=== PATIENT | female | born 1950 | race Caucasian/White ===

== ENCOUNTER 2020-01-23 15:10 | Emergency (ER) | payer MEDICARE, BC, OTHER ==
[~2020-01-23] VITALS: Ht 165.1 cm; Wt 95.2 kg
[2020-01-23] MEDS ORDERED: HYDR1TAB94 PO (18:17)
[2020-01-23] MEDS ORDERED: KEFLEX500 MG PO (18:17)
[2020-01-23] MEDS ORDERED: MOMETASONE FURO17 GM (18:48)
[2020-01-23] MEDS ORDERED: SYNTHROID137 MCG PO (18:48)
== END 2020-01-23 18:45 | disposition home or self-care (01) ==
LOC: ER 15:10
DX: S81.812A Laceration without foreign body, left lower leg, initial encounter (principal); Z88.8 Allergy status to other drugs, medicaments and biological substances; W28.XXXA Contact with powered lawn mower, initial encounter
CPT/HCPCS: 12017; 73590; 90471; 90714; 99282-25; A9270

== ENCOUNTER → 2020-02-08 | Outpatient (CLI) | payer MEDICARE, BC, OTHER ==
[~2020-02-08] MED LIST: HYDR1TAB94 PO; KEFLEX500 MG PO; MOMETASONE FURO17 GM; SYNTHROID137 MCG PO
== END | disposition home or self-care (01) ==
LOC: LAB 15:30 → LAB SHORT 15:30
DX: L08.9 Local infection of the skin and subcutaneous tissue, unspecified (principal)
CPT/HCPCS: 87070; 87205

== ENCOUNTER 2020-05-16 20:26 | Emergency (ER) | payer MEDICARE, BC, OTHER ==
[~2020-05-16] VITALS: Ht 167.6 cm; Wt 95.2 kg
[2020-05-16] MEDS ORDERED: Roxicodone5 MG PO (21:08)
== END 2020-05-16 21:37 | disposition home or self-care (01) ==
LOC: ER 20:26
DX: M25.552 Pain in left hip (principal); W18.30XA Fall on same level, unspecified, initial encounter; Y93.K1 Activity, walking an animal
CPT/HCPCS: 73502; 99283-25; A9270

== ENCOUNTER 2023-02-10 03:36 | Day surgery (SDC) | payer MEDICARE, BC, OTHER ==
[~2023-02-10 03:36] MED LIST changes: +Roxicodone5 MG PO
[2023-02-10 14:00] VITALS: BP 150/85
[2023-02-10 15:10] VITALS: BP 131/78
[2023-02-10 15:24] VITALS: BP 133/85
[2023-02-10 15:41] VITALS: BP 127/72
[2023-02-10] MEDS ORDERED: PRED5 PO (15:44)
[2023-02-10] MEDS ORDERED: VITAMIN D5000 UNIT PO (15:45)
[2023-02-10] MEDS ORDERED: MULVITA PO (15:45)
[2023-02-10] MEDS ORDERED: NAPROXEN500 MG PO (15:45)
[2023-02-10] MEDS ORDERED: SERT50 PO (15:46)
[2023-02-10] MEDS ORDERED: Lutein6 MG PO (15:47)
[2023-02-10] MEDS ORDERED: C-500500 M1 PO (15:50)
[2023-02-10 16:12] VITALS: BP 134/85
[2023-02-10 16:27] VITALS: BP 129/70
== END 2023-02-10 16:59 | disposition home or self-care (01) ==
LOC: ATC 03:36
DX: M06.09 Rheumatoid arthritis without rheumatoid factor, multiple sites (principal); Z79.899 Other long term (current) drug therapy
CPT/HCPCS: 96375; 96413; 96415; A9270; J1200; J2920; J7050; Q5104

== ENCOUNTER 2023-03-24 02:58 | Day surgery (SDC) | payer MEDICARE, BC, OTHER ==
[~2023-03-24] VITALS: Wt 90.5 kg
[~2023-03-24 02:58] MED LIST changes: +C-500500 M1 PO; +Lutein6 MG PO; +MULVITA PO; +NAPROXEN500 MG PO; +PRED5 PO; +SERT50 PO; +VITAMIN D5000 UNIT PO
[2023-03-24 14:34] VITALS: BP 149/80
== END 2023-03-24 17:05 | disposition home or self-care (01) ==
LOC: ATC 02:58
DX: M06.09 Rheumatoid arthritis without rheumatoid factor, multiple sites (principal); Z79.899 Other long term (current) drug therapy
CPT/HCPCS: 96413; 96415; J7050; Q5104

== ENCOUNTER 2023-05-24 02:20 | Day surgery (SDC) | payer MEDICARE, BC, OTHER ==
[2023-05-24 14:50] VITALS: BP 151/79
== END 2023-05-24 17:20 | disposition home or self-care (01) ==
LOC: ATC 02:20
DX: M06.09 Rheumatoid arthritis without rheumatoid factor, multiple sites (principal); M81.0 Age-related osteoporosis without current pathological fracture; Z79.899 Other long term (current) drug therapy; E66.09 Other obesity due to excess calories
CPT/HCPCS: 96413; 96415; J7050; Q5104

== ENCOUNTER 2023-07-26 02:56 | Day surgery (SDC) | payer MEDICARE, BC, OTHER ==
[2023-07-26 16:05] VITALS: BP 117/72
== END 2023-07-26 18:40 | disposition home or self-care (01) ==
LOC: ATC 02:56
DX: M06.09 Rheumatoid arthritis without rheumatoid factor, multiple sites (principal); M81.0 Age-related osteoporosis without current pathological fracture; Z79.899 Other long term (current) drug therapy; E66.09 Other obesity due to excess calories; M25.561 Pain in right knee; Z68.33 Body mass index [BMI] 33.0-33.9, adult
CPT/HCPCS: 96413; 96415; J7050; Q5104

== ENCOUNTER 2023-10-24 09:13 | Day surgery (SDC) | payer MEDICARE, BC, OTHER ==
[2023-10-24 15:09] VITALS: BP 132/72
[2023-10-24] MEDS ORDERED: NS IV SCH (15:15)
[2023-10-24] MEDS ORDERED: INFLIXIMAB ABDA IV SCH (15:15)
[2023-10-24 15:38] LABS: BASOPHILS PERCENT AUTO 2 % (0-2); EOSINOPHILS ABSOLUTE AUTO 0.34 K/mm3 (0.00-0.68); EOSINOPHILS PERCENT AUTO 6 % (0-6); Hematocrit 42.1 % (33.0-51.0); Hemoglobin 13.6 g/dL (11.5-16.0); IMMATURE GRAN ABSOLUTE AUTO 0.02 K/mm3 (0.00-0.10); IMMATURE GRAN PERCENT AUTO 0 % (0-1); LYMPHOCYTES ABSOLUTE AUTO 1.39 K/mm3 (0.84-5.20); LYMPHOCYTES PERCENT AUTO 24 % (21-46); MONOCYTES ABSOLUTE AUTO 0.77 K/mm3 (0.16-1.47); MONOCYTES PERCENT AUTO 13 % (4-13); Mean Corpuscular HGB 30.2 pg (26.0-34.0); Mean Corpuscular HGB Conc 32.3 g/dL (31.5-36.5); Mean Corpuscular Volume 94 fL (80-100); Mean Platelet Volume 9.9 fL (9.1-12.4); NEUTROPHILS ABSOLUTE AUTO 3.23 K/mm3 (1.96-9.15); NEUTROPHILS PERCENT AUTO 55 % (41-73); Platelet Count 277 K/mm3 (150-400); RDW Coefficient Variation 13.7 % (11.7-14.2); RDW Standard Deviation 46.9 fL (35.1-46.3); White Blood Cell Count 5.85 K/mm3 (4.00-11.30)
[2023-10-24 16:03] LABS: Alanine Aminotransfer (ALT/SGP 29 U/L (12-78); Albumin, Blood 3.5 g/dL (3.4-5.0); Albumin/Globulin Ratio 1.1 (0.8-1.8); Alk Phos 58 U/L (50-136); Anion Gap 3 mmol/L (6-16); Aspartate Aminotrans (AST/SGOT 40 U/L (12-37); Bilirubin, Total 0.4 mg/dL (0.1-1.0); Blood Urea Nitrogen 21 mg/dL (8-24); Bun/Creatinine Ratio 30.8 (12.0-20.0); C-REACTIVE PROTEIN, EXT RANGE <0.290 mg/dL (0.000-0.300); CO2, Blood 29 mmol/L (21-32); Calcium, Blood 8.6 mg/dL (8.5-10.1); Chloride, Blood 110 mmol/L (98-108); Creatinine, Blood 0.68 mg/dL (0.40-1.00); Globulin, Blood 3.3 g/dL (2.2-4.0); Glomerular Filtration Rate 93 (60-); Glucose, Blood 122 mg/dL (70-99); Potassium, Blood 3.8 mmol/L (3.5-5.5); Sodium, Blood 142 mmol/L (136-145); Total Protein, Blood 6.8 g/dL (6.4-8.2)
[2023-10-28 00:01] LABS: QUANTIFERON MITOGEN MINUS NIL 8.48 IU/mL; QUANTIFERON NIL 0.02 IU/mL; QUANTIFERON TB GOLD PLUS Negative (Negative)
== END 2023-10-24 17:51 | disposition home or self-care (01) ==
LOC: ATC 09:13
PROVIDERS: Internal Medicine Rheumatology
DX: M06.09 Rheumatoid arthritis without rheumatoid factor, multiple sites (principal); M81.0 Age-related osteoporosis without current pathological fracture; M79.7 Fibromyalgia; E66.09 Other obesity due to excess calories; Z68.33 Body mass index [BMI] 33.0-33.9, adult; Z79.899 Other long term (current) drug therapy
CPT/HCPCS: 80053; 85025; 86140; 86480; 96413; 96415; J7050; Q5104

== ENCOUNTER 2024-02-20 02:04 | Day surgery (SDC) | payer MEDICARE, BC, OTHER ==
[2024-02-20] MEDS ORDERED: NS IV SCH (06:00)
[2024-02-20] MEDS ORDERED: INFLIXIMAB ABDA IV SCH (06:00)
[2024-02-20 15:08] VITALS: BP 134/83
[2024-02-20] MEDS ORDERED: RENFLEXIS100 M4 IV (15:30)
[2024-02-20 15:41] LABS: BASOPHILS ABSOLUTE AUTO 0.09 K/mm3 (0.00-0.23); BASOPHILS PERCENT AUTO 1 % (0-2); EOSINOPHILS ABSOLUTE AUTO 0.26 K/mm3 (0.00-0.68); EOSINOPHILS PERCENT AUTO 4 % (0-6); Hematocrit 43.5 % (33.0-51.0); Hemoglobin 14.2 g/dL (11.5-16.0); IMMATURE GRAN ABSOLUTE AUTO 0.03 K/mm3 (0.00-0.10); IMMATURE GRAN PERCENT AUTO 0 % (0-1); LYMPHOCYTES PERCENT AUTO 22 % (21-46); MONOCYTES ABSOLUTE AUTO 0.97 K/mm3 (0.16-1.47); MONOCYTES PERCENT AUTO 13 % (4-13); Mean Corpuscular HGB Conc 32.6 g/dL (31.5-36.5); Mean Corpuscular Volume 95 fL (80-100); NEUTROPHILS ABSOLUTE AUTO 4.44 K/mm3 (1.96-9.15); NEUTROPHILS PERCENT AUTO 60 % (41-73); Platelet Count 296 K/mm3 (150-400); RDW Coefficient Variation 12.7 % (11.7-14.2); Red Blood Cell Count 4.58 M/mm3 (3.80-5.20); White Blood Cell Count 7.39 K/mm3 (4.00-11.30)
[2024-02-20 16:07] LABS: C-REACTIVE PROTEIN, EXT RANGE <0.290 mg/dL (0.000-0.300)
[2024-02-20 16:13] LABS: Alanine Aminotransfer (ALT/SGP 23 U/L (12-78); Albumin, Blood 3.5 g/dL (3.4-5.0); Alk Phos 60 U/L (50-136); Anion Gap 7 mmol/L (3-11); Aspartate Aminotrans (AST/SGOT 35 U/L (12-37); Bilirubin, Total 0.4 mg/dL (0.1-1.0); Blood Urea Nitrogen 22 mg/dL (8-24); Bun/Creatinine Ratio 32.8 (12.0-20.0); CO2, Blood 25 mmol/L (21-32); Calcium, Blood 8.5 mg/dL (8.5-10.1); Chloride, Blood 111 mmol/L (98-108); Creatinine, Blood 0.67 mg/dL (0.40-1.00); Globulin, Blood 3.4 g/dL (2.2-4.0); Glomerular Filtration Rate 93 (60-); Glucose, Blood 114 mg/dL (70-99); Potassium, Blood 3.8 mmol/L (3.5-5.5); Sodium, Blood 139 mmol/L (136-145); Total Protein, Blood 6.9 g/dL (6.4-8.2)
--- NOTE | 2024-02-20 16:26 | NUR ---
Lab results from today faxed to Dr. Spencer's office.
== END 2024-02-20 17:50 | disposition home or self-care (01) ==
LOC: ATC 02:04
PROVIDERS: Internal Medicine Rheumatology
DX: M06.09 Rheumatoid arthritis without rheumatoid factor, multiple sites (principal); M81.0 Age-related osteoporosis without current pathological fracture; E66.09 Other obesity due to excess calories
CPT/HCPCS: 80053; 85025; 86140; 96413; 96415; J7050; Q5104

== ENCOUNTER 2024-04-20 03:44 | Day surgery (SDC) | payer MEDICARE, BC, OTHER ==
[~2024-04-20 03:44] MED LIST changes: +RENFLEXIS100 M4 IV
[2024-04-20] MEDS ORDERED: NS IV SCH (14:05)
[2024-04-20] MEDS ORDERED: INFLIXIMAB ABDA IV SCH (14:05)
[2024-04-20 14:11] VITALS: BP 124/77
== END 2024-04-20 16:45 | disposition home or self-care (01) ==
LOC: ATC 03:44
DX: M06.09 Rheumatoid arthritis without rheumatoid factor, multiple sites (principal); M81.0 Age-related osteoporosis without current pathological fracture; E66.09 Other obesity due to excess calories; M25.561 Pain in right knee; M79.7 Fibromyalgia; Z79.899 Other long term (current) drug therapy
CPT/HCPCS: 96413; 96415; J7050; Q5104

== ENCOUNTER 2024-06-15 03:24 | Day surgery (SDC) | payer MEDICARE, BC, OTHER ==
[~2024-06-15] VITALS: Wt 91.1 kg
[2024-06-15] MEDS ORDERED: INFLIXIMAB ABDA IV SCH (14:15)
[2024-06-15] MEDS ORDERED: NS IV SCH (14:15)
[2024-06-15 14:16] VITALS: BP 151/76
[2024-06-15 15:53] LABS: Bun/Creatinine Ratio 33.3 (12.0-20.0); Calcium, Blood 8.7 mg/dL (8.5-10.1); Creatinine, Blood 0.69 mg/dL (0.40-1.00); Potassium, Blood 4.3 mmol/L (3.5-5.5)
== END 2024-06-15 16:51 | disposition home or self-care (01) ==
LOC: ATC 03:24
PROVIDERS: Registered Nurse Oncology
DX: M06.09 Rheumatoid arthritis without rheumatoid factor, multiple sites (principal); M81.0 Age-related osteoporosis without current pathological fracture; M79.7 Fibromyalgia; Z79.52 Long term (current) use of systemic steroids; Z79.899 Other long term (current) drug therapy; Z88.4 Allergy status to anesthetic agent; Z88.8 Allergy status to other drugs, medicaments and biological substances
CPT/HCPCS: 80048; 96413; 96415; J7050; Q5104

== ENCOUNTER 2024-08-10 05:14 | Day surgery (SDC) | payer MEDICARE, BC, OTHER ==
[~2024-08-10] VITALS: Wt 92.6 kg
[2024-08-10 14:19] VITALS: BP 138/73
[2024-08-10] MEDS ORDERED: NS IV SCH (14:25)
[2024-08-10] MEDS ORDERED: INFLIXIMAB ABDA IV SCH (14:25)
[2024-08-10 14:46] LABS: BASOPHILS ABSOLUTE AUTO 0.09 K/mm3 (0.00-0.23); BASOPHILS PERCENT AUTO 1 % (0-2); EOSINOPHILS ABSOLUTE AUTO 0.38 K/mm3 (0.00-0.68); EOSINOPHILS PERCENT AUTO 5 % (0-6); Hematocrit 43.4 % (33.0-51.0); Hemoglobin 14.1 g/dL (11.5-16.0); IMMATURE GRAN ABSOLUTE AUTO 0.04 K/mm3 (0.00-0.10); IMMATURE GRAN PERCENT AUTO 1 % (0-1); LYMPHOCYTES ABSOLUTE AUTO 1.25 K/mm3 (0.84-5.20); LYMPHOCYTES PERCENT AUTO 15 % (21-46); MONOCYTES ABSOLUTE AUTO 1.04 K/mm3 (0.16-1.47); MONOCYTES PERCENT AUTO 13 % (4-13); Mean Corpuscular HGB Conc 32.5 g/dL (31.5-36.5); Mean Corpuscular Volume 95 fL (80-100); Mean Platelet Volume 10.1 fL (9.1-12.4); NEUTROPHILS ABSOLUTE AUTO 5.33 K/mm3 (1.96-9.15); NEUTROPHILS PERCENT AUTO 66 % (41-73); Platelet Count 264 K/mm3 (150-400); RDW Standard Deviation 49.5 fL (35.1-46.3); Red Blood Cell Count 4.55 M/mm3 (3.80-5.20); White Blood Cell Count 8.13 K/mm3 (4.00-11.30)
[2024-08-10 15:18] LABS: C-REACTIVE PROTEIN, EXT RANGE <0.290 mg/dL (0.000-0.300)
[2024-08-10 15:21] LABS: Alanine Aminotransfer (ALT/SGP 20 U/L (12-78); Albumin, Blood 3.4 g/dL (3.4-5.0); Alk Phos 64 U/L (50-136); Anion Gap 9 mmol/L (3-11); Aspartate Aminotrans (AST/SGOT 26 U/L (12-37); Bilirubin, Total 0.4 mg/dL (0.1-1.0); Blood Urea Nitrogen 23 mg/dL (8-24); Bun/Creatinine Ratio 28.7 (12.0-20.0); CO2, Blood 29 mmol/L (21-32); Calcium, Blood 9.4 mg/dL (8.5-10.1); Chloride, Blood 105 mmol/L (98-108); Globulin, Blood 3.4 g/dL (2.2-4.0); Glomerular Filtration Rate 78 (60-); Glucose, Blood 184 mg/dL (70-99); Potassium, Blood 3.9 mmol/L (3.5-5.5); Sodium, Blood 139 mmol/L (136-145); Total Protein, Blood 6.8 g/dL (6.4-8.2)
--- NOTE | 2024-08-10 17:36 | NUR ---
LAB RESULTS FROM TODAY FAXED TO [facility].
== END 2024-08-10 16:51 | disposition home or self-care (01) ==
LOC: ATC 05:14
PROVIDERS: Internal Medicine Rheumatology
DX: M06.09 Rheumatoid arthritis without rheumatoid factor, multiple sites (principal); Z79.1 Long term (current) use of non-steroidal anti-inflammatories (NSAID); Z79.52 Long term (current) use of systemic steroids; Z79.899 Other long term (current) drug therapy
CPT/HCPCS: 80053; 85025; 86140; 96413; 96415; J7050; Q5104

== ENCOUNTER 2024-10-08 07:21 | Day surgery (SDC) | payer MEDICARE, BC, OTHER ==
[~2024-10-08] VITALS: Wt 90.2 kg
[2024-10-08 13:53] VITALS: BP 131/91
[2024-10-08] MEDS ORDERED: NS IV SCH (14:15)
[2024-10-08] MEDS ORDERED: GOLIMUMAB IV SCH (14:15)
[2024-10-08] MEDS ORDERED: SIMPONI AR50 MG/4 M1 IV (16:48)
[2024-10-10 23:11] LABS: QUANTIFERON MITOGEN MINUS NIL 9.91 IU/mL; QUANTIFERON NIL 0.09 IU/mL; QUANTIFERON PLUS TB1 MINUS NIL 0.01 IU/mL (<=0.34); QUANTIFERON PLUS TB2 MINUS NIL 0.01 IU/mL (<=0.34)
== END 2024-10-08 15:27 | disposition home or self-care (01) ==
LOC: ATC 07:21
PROVIDERS: Internal Medicine Rheumatology
DX: M06.09 Rheumatoid arthritis without rheumatoid factor, multiple sites (principal); M81.0 Age-related osteoporosis without current pathological fracture
CPT/HCPCS: 86480; 96365; J1602

== ENCOUNTER 2024-11-09 04:31 | Day surgery (SDC) | payer MEDICARE, BC, OTHER ==
[~2024-11-09 04:31] MED LIST changes: +SIMPONI AR50 MG/4 M1 IV
[2024-11-09 16:35] VITALS: BP 127/68
[2024-11-09] MEDS ORDERED: GOLIMUMAB IV SCH (16:40)
[2024-11-09] MEDS ORDERED: NS IV SCH (16:40)
== END 2024-11-09 17:38 | disposition home or self-care (01) ==
LOC: ATC 04:31
DX: M06.09 Rheumatoid arthritis without rheumatoid factor, multiple sites (principal); M81.0 Age-related osteoporosis without current pathological fracture; Z79.899 Other long term (current) drug therapy
CPT/HCPCS: 96365; J1602

== ENCOUNTER 2024-12-31 08:37 | Day surgery (SDC) | payer MEDICARE, BC, OTHER ==
[~2024-12-31] VITALS: Wt 93.0 kg
[2024-12-31 14:18] VITALS: BP 152/79
[2024-12-31] MEDS ORDERED: GOLIMUMAB IV SCH (14:30)
[2024-12-31] MEDS ORDERED: NS IV SCH (14:30)
== END 2024-12-31 15:30 | disposition home or self-care (01) ==
LOC: ATC 08:37
DX: M06.09 Rheumatoid arthritis without rheumatoid factor, multiple sites (principal); Z79.899 Other long term (current) drug therapy
CPT/HCPCS: 96365; J1602

== ENCOUNTER 2025-03-15 01:52 | Day surgery (SDC) | payer MEDICARE, BC ==
[~2025-03-15] VITALS: Wt 88.7 kg
[~2025-03-15 01:52] MED LIST changes: +CYMBALTA30 M2 PO; +MAGNESIUM; +OMEP20ER; +POTASSIUM; +VITAMIN B12; +ZINC15; +[UNRECOGNIZED DRUG - OTHER]
[2025-03-15] MEDS ORDERED: NS IV SCH (15:20)
[2025-03-15] MEDS ORDERED: GOLIMUMAB IV SCH (15:20)
[2025-03-15 15:23] VITALS: BP 127/84
== END 2025-03-15 16:15 | disposition home or self-care (01) ==
LOC: ATC 01:52
DX: M06.09 Rheumatoid arthritis without rheumatoid factor, multiple sites (principal); M81.0 Age-related osteoporosis without current pathological fracture; M79.7 Fibromyalgia; Z79.52 Long term (current) use of systemic steroids; Z79.69 Long term (current) use of other immunomodulators and immunosuppressants; Z79.83 Long term (current) use of bisphosphonates; Z79.899 Other long term (current) drug therapy
CPT/HCPCS: 96365; J1602

== ENCOUNTER 2025-05-10 03:44 | Day surgery (SDC) | payer MEDICARE, BC ==
[~2025-05-10 03:44] MED LIST changes: +Abatacept/Maltose 750 MG in NS 100 ML IV SCH
[2025-05-10 14:37] VITALS: BP 111/63
[2025-05-10 15:23] LABS: BASOPHILS ABSOLUTE AUTO 0.05 K/mm3 (0.00-0.23); BASOPHILS PERCENT AUTO 1 % (0-2); EOSINOPHILS ABSOLUTE AUTO 0.18 K/mm3 (0.00-0.68); EOSINOPHILS PERCENT AUTO 3 % (0-6); Hematocrit 42.5 % (33.0-51.0); Hemoglobin 14.1 g/dL (11.5-16.0); IMMATURE GRAN ABSOLUTE AUTO 0.05 K/mm3 (0.00-0.10); IMMATURE GRAN PERCENT AUTO 1 % (0-1); LYMPHOCYTES ABSOLUTE AUTO 1.58 K/mm3 (0.84-5.20); LYMPHOCYTES PERCENT AUTO 26 % (21-46); MONOCYTES ABSOLUTE AUTO 0.85 K/mm3 (0.16-1.47); MONOCYTES PERCENT AUTO 14 % (4-13); Mean Corpuscular HGB Conc 33.2 g/dL (31.5-36.5); Mean Corpuscular Volume 96 fL (80-100); NEUTROPHILS ABSOLUTE AUTO 3.37 K/mm3 (1.96-9.15); NEUTROPHILS PERCENT AUTO 55 % (41-73); NRBC ABSOLUTE 0.00 K/mm3 (0.00-0.02); NRBC Auto 0.0 /100 WBC (0.0-0.2); Platelet Count 275 K/mm3 (150-400); RDW Coefficient Variation 13.1 % (11.7-14.2); RDW Standard Deviation 46.1 fL (35.1-46.3)
[2025-05-10 15:47] LABS: Alanine Aminotransfer (ALT/SGP 12.0 U/L (12-78); Albumin, Blood 3.4 g/dL (3.4-5.0); Albumin/Globulin Ratio 1.0 (0.8-1.8); Anion Gap 10.0 mmol/L (3-11); Aspartate Aminotrans (AST/SGOT 22.0 U/L (12-37); Bilirubin, Total 0.7 mg/dL (0.1-1.0); Blood Urea Nitrogen 24.0 mg/dL (8-24); CO2, Blood 25.0 mmol/L (21-32); Calcium, Blood 8.8 mg/dL (8.5-10.1); Chloride, Blood 108.0 mmol/L (98-108); Creatinine, Blood 0.79 mg/dL (0.40-1.00); Globulin, Blood 3.4 g/dL (2.2-4.0); Glucose, Blood 112.0 mg/dL (70-99); Potassium, Blood 4.3 mmol/L (3.5-5.5); Sodium, Blood 139.0 mmol/L (136-145); Total Protein, Blood 6.8 g/dL (6.4-8.2)
== END 2025-05-10 16:10 | disposition home or self-care (01) ==
LOC: ATC 03:44
PROVIDERS: Internal Medicine Rheumatology
DX: M06.09 Rheumatoid arthritis without rheumatoid factor, multiple sites (principal); M79.7 Fibromyalgia; Z79.899 Other long term (current) drug therapy
CPT/HCPCS: 80053; 85025; 85651; 96365; J0129-JA

== ENCOUNTER → 2025-05-22 | Outpatient (CLI) | payer MEDICARE, BC ==
[~2025-05-22] MED LIST changes: -Abatacept/Maltose 750 MG in NS 100 ML IV SCH
[2025-05-24 08:14] LABS: Campylobacter Sp Not Detected (NOT DETECT); E. Coli O157 Not Detected (NOT DETECT); Enteroaggregative E. coli-EAEC Not Detected (NOT DETECT); Enteropathogenic E. coli-EPEC Not Detected (NOT DETECT); Enterotoxigenic E. coli-ETEC Not Detected (NOT DETECT); Salmonella Sp Not Detected (NOT DETECT); Shiga Toxin-prod E. coli-STEC Not Detected (NOT DETECT); Shigella/Enteroin E. coli-EIEC Not Detected (NOT DETECT); Vibrio Sp Not Detected (NOT DETECT)
== END ==
LOC: LAB SHORT 12:00 → LAB 12:00
PROVIDERS: Internal Medicine
DX: K52.9 Noninfective gastroenteritis and colitis, unspecified (principal)
CPT/HCPCS: 87507

== ENCOUNTER 2025-05-23 00:05 | Day surgery (SDC) | payer MEDICARE, BC ==
[2025-05-23] MEDS ORDERED: Abatacept/Maltose 750 MG in NS 100 ML IV SCH (06:00)
[2025-05-23 14:25] VITALS: BP 131/84
== END 2025-05-23 15:38 | disposition home or self-care (01) ==
LOC: ATC 00:05
DX: M06.09 Rheumatoid arthritis without rheumatoid factor, multiple sites (principal); M81.0 Age-related osteoporosis without current pathological fracture; M79.7 Fibromyalgia; M19.91 Primary osteoarthritis, unspecified site; Z79.52 Long term (current) use of systemic steroids; Z79.890 Hormone replacement therapy; Z79.899 Other long term (current) drug therapy; K52.9 Noninfective gastroenteritis and colitis, unspecified; E03.9 Hypothyroidism, unspecified
CPT/HCPCS: 36415; 80053; 84443; 85025; 86140; 96365; J0129-JA

== ENCOUNTER 2025-06-20 03:18 | Day surgery (SDC) | payer MEDICARE, BC ==
[2025-06-20] MEDS ORDERED: Abatacept/Maltose 750 MG in NS 100 ML IV SCH (06:00)
[2025-06-20 14:24] VITALS: BP 119/78
== END 2025-06-20 15:58 | disposition home or self-care (01) ==
LOC: ATC 03:18
DX: M06.09 Rheumatoid arthritis without rheumatoid factor, multiple sites (principal); M81.0 Age-related osteoporosis without current pathological fracture; D84.821 Immunodeficiency due to drugs; M79.7 Fibromyalgia; M47.819 Spondylosis without myelopathy or radiculopathy, site unspecified; Z79.52 Long term (current) use of systemic steroids; Z79.60 Long term (current) use of unspecified immunomodulators and immunosuppressants; Z79.890 Hormone replacement therapy; Z79.899 Other long term (current) drug therapy
CPT/HCPCS: 96365; J0129-JA

== ENCOUNTER 2025-07-18 00:57 | Day surgery (SDC) | payer MEDICARE, BC ==
[2025-07-18] MEDS ORDERED: Abatacept/Maltose 750 MG in NS 100 ML IV SCH (06:00)
[2025-07-18 13:31] VITALS: BP 134/69
[2025-07-18] MEDS ORDERED: ABAT250V IV (13:54)
[2025-07-18 14:22] LABS: BASOPHILS ABSOLUTE AUTO 0.10 K/mm3 (0.00-0.23); BASOPHILS PERCENT AUTO 2 % (0-2); EOSINOPHILS ABSOLUTE AUTO 0.34 K/mm3 (0.00-0.68); EOSINOPHILS PERCENT AUTO 5 % (0-6); Hematocrit 42.6 % (33.0-51.0); Hemoglobin 14.0 g/dL (11.5-16.0); IMMATURE GRAN ABSOLUTE AUTO 0.02 K/mm3 (0.00-0.10); IMMATURE GRAN PERCENT AUTO 0 % (0-1); LYMPHOCYTES ABSOLUTE AUTO 1.89 K/mm3 (0.84-5.20); LYMPHOCYTES PERCENT AUTO 30 % (21-46); MONOCYTES ABSOLUTE AUTO 0.66 K/mm3 (0.16-1.47); MONOCYTES PERCENT AUTO 10 % (4-13); Mean Corpuscular HGB Conc 32.9 g/dL (31.5-36.5); Mean Corpuscular Volume 97 fL (80-100); NEUTROPHILS ABSOLUTE AUTO 3.32 K/mm3 (1.96-9.15); NEUTROPHILS PERCENT AUTO 52 % (41-73); NRBC ABSOLUTE 0.00 K/mm3 (0.00-0.02); NRBC Auto 0.0 /100 WBC (0.0-0.2); Platelet Count 262 K/mm3 (150-400); RDW Coefficient Variation 13.3 % (11.7-14.2); RDW Standard Deviation 47.8 fL (35.1-46.3)
[2025-07-18 14:48] LABS: Alanine Aminotransfer (ALT/SGP 13.0 U/L (12-78); Albumin, Blood 3.6 g/dL (3.4-5.0); Albumin/Globulin Ratio 1.2 (0.8-1.8); Anion Gap 6.0 mmol/L (3-11); Aspartate Aminotrans (AST/SGOT 15.0 U/L (12-37); Bilirubin, Total 0.5 mg/dL (0.1-1.0); Blood Urea Nitrogen 22.0 mg/dL (8-24); CO2, Blood 28.0 mmol/L (21-32); Calcium, Blood 8.8 mg/dL (8.5-10.1); Chloride, Blood 109.0 mmol/L (98-108); Creatinine, Blood 0.7 mg/dL (0.40-1.00); Globulin, Blood 3.0 g/dL (2.2-4.0); Glucose, Blood 145.0 mg/dL (70-99); Potassium, Blood 3.9 mmol/L (3.5-5.5); Sodium, Blood 139.0 mmol/L (136-145); Total Protein, Blood 6.6 g/dL (6.4-8.2)
== END 2025-07-18 14:40 | disposition home or self-care (01) ==
LOC: ATC 00:57
PROVIDERS: Internal Medicine Rheumatology
DX: M06.09 Rheumatoid arthritis without rheumatoid factor, multiple sites (principal); M81.0 Age-related osteoporosis without current pathological fracture; M79.7 Fibromyalgia; M19.91 Primary osteoarthritis, unspecified site; D84.821 Immunodeficiency due to drugs; Z79.60 Long term (current) use of unspecified immunomodulators and immunosuppressants; Z79.899 Other long term (current) drug therapy
CPT/HCPCS: 36591; 80053; 82306; 85025; 85651; 96365; 99211; J0129-JA